=== PATIENT | male | born 1995 | race Two or more races ===

== ENCOUNTER 2022-06-01 00:29 | Emergency (ER) | payer OTHER ==
[~2022-06-01] VITALS: Ht 177.8 cm; Wt 70.0 kg
[2022-06-01 00:41] VITALS: BP 126/76
[2022-06-01] MEDS ORDERED: CYCL-448 PO (01:42)
== END 2022-06-01 03:55 | disposition home or self-care (01) ==
LOC: EMS 00:29
DX: S16.1XXA Strain of muscle, fascia and tendon at neck level, initial encounter (principal); H93.12 Tinnitus, left ear; E06.3 Autoimmune thyroiditis; Z98.890 Other specified postprocedural states; W11.XXXA Fall on and from ladder, initial encounter; Y93.89 Activity, other specified; Y92.89 Other specified places as the place of occurrence of the external cause; Y99.0 Civilian activity done for income or pay
CPT/HCPCS: 72125; 99284; Z7502

== ENCOUNTER 2022-12-15 22:56 | Emergency (ER) | payer MEDICAID, OTHER ==
[~2022-12-15] VITALS: Ht 177.8 cm; Wt 82.7 kg
[~2022-12-15 22:56] MED LIST: CYCL-448 PO
[2022-12-15] MEDS ORDERED: ATOR20TA65 PO (22:59)
[2022-12-15] MEDS ORDERED: DEXA4TAB PO (22:59)
[2022-12-15] MEDS ORDERED: ACETAMINOPHEN 500 MG TABLET PO ONE (23:30)
[2022-12-15] MEDS ORDERED: PROPARACAINE HCL 0.5% 15 ML OPHTHALMIC SOLUTION OU ONE (23:30)
[2022-12-15] MEDS ORDERED: FLUORESCEIN SODIUM 1 MG STRIP ONE (23:31)
[2022-12-16] MEDS ORDERED: ERYTHROMYCIN 0.5% 3.5 GM TUBE OPHTHALMIC OINTMENT OD ONE (01:00)
[2022-12-16 01:18] VITALS: BP 121/74; PULSE 68; RESP 17; TEMP 97.3
== END 2022-12-16 01:18 | disposition home or self-care (01) ==
LOC: EMS 22:58
DX: S00.11XA Contusion of right eyelid and periocular area, initial encounter (principal); T15.91XA Foreign body on external eye, part unspecified, right eye, initial encounter; Z98.890 Other specified postprocedural states; W45.8XXA Other foreign body or object entering through skin, initial encounter; Y93.89 Activity, other specified; Y92.89 Other specified places as the place of occurrence of the external cause; Y99.0 Civilian activity done for income or pay
CPT/HCPCS: 65205; 99284; Z7502; Z7610